=== PATIENT | male | born 1985 | race Caucasian/White ===

== ENCOUNTER 2024-03-12 08:43 | Emergency (ER) | payer SELFPAY ==
[~2024-03-12] VITALS: Ht 170.2 cm; Wt 65.0 kg
[2024-03-12 08:52] VITALS: BP 111/68; PULSE 95; RESP 16; TEMP 98.4; O2SAT 100
[2024-03-12] MEDS ORDERED: IBUP-2030 PO (10:53)
[2024-03-12] MEDS: CEFTRIAXONE SODIUM 500MG VIAL IM ONE (11:12)
[2024-03-12] MEDS: DOXYCYCLINE HYCLATE 100MG CAPSULE PO ONE (11:12)
== END 2024-03-12 11:57 | disposition home or self-care (01) ==
LOC: ER 08:43
DX: N45.1 Epididymitis (principal); N45.2 Orchitis
CPT/HCPCS: 99285; 93976; 76870; 96372; J0696